=== PATIENT | male | born 1995 | race Caucasian/White ===

== ENCOUNTER 2017-06-03 18:27 | Emergency (ER) | payer OTHER ==
[~2017-06-03] VITALS: Ht 175.3 cm; Wt 102.3 kg
[~2017-06-03 18:27] MED LIST: NOHOMEMEDS
[2017-06-03 19:51] VITALS: BP 143/83
== END 2017-06-03 19:55 | disposition home or self-care (01) ==
LOC: EME 18:27
DX: S09.90XA Unspecified injury of head, initial encounter (principal); W51.XXXA Accidental striking against or bumped into by another person, initial encounter
CPT/HCPCS: 70450; 99281; 99284

== ENCOUNTER 2017-06-14 10:24 | Emergency (ER) | payer OTHER ==
[~2017-06-14] VITALS: Ht 175.3 cm; Wt 102.6 kg
[2017-06-14] MEDS ORDERED: NAPROSYN500 MG PO (12:21)
[2017-06-14] MEDS ORDERED: ZOFRAN4 MG PO (12:44)
[2017-06-14 13:34] VITALS: BP 151/105
== END 2017-06-14 13:34 | disposition home or self-care (01) ==
LOC: EME 10:24
DX: S06.0X0D Concussion without loss of consciousness, subsequent encounter (principal); W22.09XD Striking against other stationary object, subsequent encounter
CPT/HCPCS: 99281; 99283

== ENCOUNTER 2017-12-03 20:02 | Emergency (ER) | payer OTHER ==
[~2017-12-03] VITALS: Ht 175.3 cm; Wt 106.2 kg
[~2017-12-03 20:02] MED LIST changes: +NAPROSYN500 MG PO; +ZOFRAN4 MG PO
[2017-12-03 20:22] LABS: HEMOGLOBIN 14.4 G/DL (12.5-16.6); MCH 28.3 PG (29.0-34.0); MCHC 35.1 G/DL (30.0-36.0); MCV 80.7 FL (86-99); PLATELET COUNT 236 K/uL (156-360); RBC DIS.WIDTH-CV 12.8 % (11.8-14.6); RBC DIS.WIDTH-SD 37.6 % (39-53); RED BLOOD COUNT 5.08 M/uL (4.00-5.50); WHITE BLOOD COUNT 10.6 K/uL (4.1-10.2)
[2017-12-03 20:29] LABS: APPEARANCE CLEAR ((CLEAR)); BILIRUBIN NEGATIVE; BLOOD NEGATIVE; COLOR YELLOW ((YELLOW)); GLUCOSE (STRIP) NEGATIVE; KETONES NEGATIVE; LEUKOCYTES NEGATIVE; NITRITE NEGATIVE; PROTEIN (STRIP) NEGATIVE; SPECIFIC GRAVITY 1.021 (1.000-1.030); UCUL ADDED? NO; UROBILINOGEN 0.2 MG/DL (0.2-1.0)
[2017-12-03 20:31] LABS: CHLORIDE 105 mEq/L (99-109); POTASSIUM 4.3 mEq/L (3.7-5.4); SODIUM 139 mEq/L (136-147)
[2017-12-03 20:33] LABS: GLUCOSE 103 mg/dL (70-99)
[2017-12-03 20:37] LABS: GFR ESTIMATE (CALCULATED) > 59 mL/min/ (58.99-99999)
[2017-12-03 20:38] LABS: UREA NITROGEN (BUN) 18 mg/dL (9-23)
[2017-12-03 23:33] LABS: ALBUMIN 4.8 g/dL (3.2-4.8)
[2017-12-03 23:36] LABS: TOTAL PROTEIN 7.8 g/dL (6.4-8.3)
[2017-12-03 23:37] LABS: TOTAL BILIRUBIN 0.9 mg/dL (0.0-1.0)
[2017-12-03 23:39] LABS: ALKALINE PHOSPHATASE 100 IU/L (3-129)
[2017-12-03 23:41] LABS: AST (GOT) 22 IU/L (2-34); DIRECT BILIRUBIN 0.3 mg/dL (0.0-0.3)
[2017-12-03 23:42] LABS: ALT (GPT) 26 IU/L (3-49); LIPASE 34 U/L (1.0-51.0)
[2017-12-03] MEDS ORDERED: ULTRAM50 MG PO (23:46)
[2017-12-03 23:58] VITALS: BP 122/84
== END 2017-12-03 23:58 | disposition home or self-care (01) ==
LOC: EME 20:02
DX: R10.32 Left lower quadrant pain (principal); J06.9 Acute upper respiratory infection, unspecified; R50.9 Fever, unspecified; M54.9 Dorsalgia, unspecified; R35.0 Frequency of micturition; R30.9 Painful micturition, unspecified; J02.9 Acute pharyngitis, unspecified
CPT/HCPCS: 74176; 80048; 80076; 81003; 83690; 85027; 87086; 87651 90; 99281; 99284